=== PATIENT | female | born 1990 | race Hispanic/Latino ===

== ENCOUNTER 2019-01-29 16:10 | Inpatient (IN) | payer MEDICAID ==
[~2019-01-29] VITALS: Ht 160 cm; Wt 86.0 kg
--- NOTE | 2019-01-29 20:06 | PR ---
[facility] [address] [place], [place] [address] Signed Progress Notes IP Datetime Report Generated by CPN: 01/29/2019 20:06 PROGRESS NOTES: [id number] Impression: Normal progression of labor Procedures: Artificial ROM Plan: Continue present management; Anticipate Vaginal Delivery VITAL SIGNS: [id number] Vital Signs: Reviewed; Within Normal Limits VS Notable Details: BP 140's/90's EXAM: [id number] Dilatation: 2.5 Effacement: 50 Station: -2 Uterine Contractions: irregular MEMBRANES: [id number] Membrane Status: Ruptured Amniotic Fluid Color: Clear ROM Note: AROM with small amount clear fluid, head wll-applied to cervix Comments: Discussed AROM, would like Epidural. Anesthesia called. Watch BP closely Fetus A: [id number] FHR Baseline: 120 Variability: Moderate 6-25bpm Accelerations: 15X15 Presentation: Vertex Fetus B: [id number] Signing Physician: Ronda Farr MD Copies: ~ *Electronically Signed* 01/29/192005 RONDA FARR MD PATIENT NAME: YELITZA SALEH I PROGRESS NOTE DATE OF : 89 PHYSICIAN: RONDA FARR MD RPT #: [id number] REPORT IS CONFIDENTIAL AND NOT TO BE RELEASED WITHOUT AUTHORIZATION
[2019-01-29] MEDS ORDERED: PRENATAL VITAM1 EAC6 PO (21:30)
[2019-01-29] MEDS ORDERED: LEVOTHYROXINE50 MCG PO (21:36)
--- NOTE | 2019-01-30 07:12 | PR ---
[facility] [address] [facility] [place], [place] [address] Signed Progress Notes IP Datetime Report Generated by CPN: 01/30/2019 07:11 PROGRESS NOTES: [id number] Impression: Slow Progression of Labor Procedures: Artificial ROM Plan: Continue present management VITAL SIGNS: [id number] Vital Signs: Reviewed; Within Normal Limits VS Notable Details: BP 140's/90's EXAM: [id number] Dilatation: 5.0 Effacement: 90 Station: -2 Uterine Contractions: every 2-4 minutes MEMBRANES: [id number] Membrane Status: Ruptured Amniotic Fluid Color: Clear ROM Note: AROM with small amount clear fluid, head wll-applied to cervix Comments: Getting uncomfortable, Anesthesia called for redose Fetus A: [id number] FHR Baseline: 145 Variability: Moderate 6-25bpm Accelerations: 15X15 Presentation: Vertex Fetus B: [id number] Signing Physician: Ronda Farr MD Copies: ~ *Electronically Signed* 01/30/19 0711 RONDA FARR MD PATIENT NAME: YELITZA SALEH I PROGRESS NOTE DATE OF : 89 PHYSICIAN: RONDA FARR MD RPT #: [id number] REPORT IS CONFIDENTIAL AND NOT TO BE RELEASED WITHOUT AUTHORIZATION
--- NOTE | 2019-01-30 07:53 | PR ---
[facility] [address] [facility] [place], [place] [address] Signed Progress Notes IP Datetime Report Generated by CPN: 01/30/2019 07:52 PROGRESS NOTES: [id number] Impression: Slow Progression of Labor Procedures: Intrauterine Pressure Catheter; Scalp Electrode Plan: Continue present management VITAL SIGNS: [id number] Vital Signs: Reviewed; Within Normal Limits VS Notable Details: BP 140's/90's EXAM: [id number] Dilatation: 5.0 Effacement: 90 Station: -2 Uterine Contractions: every 2-4 minutes MEMBRANES: [id number] Membrane Status: Ruptured Amniotic Fluid Color: Clear ROM Note: AROM with small amount clear fluid, head wll-applied to cervix Comments: Still uncomfortable after redose; will call Anesthesia. Will observe contracitons, may need to start Pitocin augmentation after patietn comfortable Fetus A: [id number] FHR Baseline: 140 Variability: Moderate 6-25bpm Accelerations: 15X15 Presentation: Vertex Fetus B: [id number] Signing Physician: Ronda Farr MD Copies: ~ *Electronically Signed* 01/30/19 0752 RONDA FARR MD PATIENT NAME: YELITZA SALEH I PROGRESS NOTE DATE OF : 89 PHYSICIAN: RONDA FARR MD RPT #: [id number] REPORT IS CONFIDENTIAL AND NOT TO BE RELEASED WITHOUT AUTHORIZATION
--- NOTE | 2019-01-30 13:16 | PR ---
[facility] [address] [facility] [place] [facility] [place], [place] [address] Signed Progress Notes IP Datetime Report Generated by CPN: 01/30/2019 13:16 PROGRESS NOTES: [id number] Impression: Normal progression of labor Procedures: Intrauterine Pressure Catheter; Scalp Electrode Plan: Continue present management; Anticipate Vaginal Delivery VITAL SIGNS: [id number] Vital Signs: Reviewed; Within Normal Limits VS Notable Details: BP 140's/90's EXAM: [id number] Dilatation: 10.0 Effacement: 100 Station: 0 Uterine Contractions: every 2-3 minutes MEMBRANES: [id number] Membrane Status: Ruptured Amniotic Fluid Color: Clear ROM Note: AROM with small amount clear fluid, head wll-applied to cervix Comments: Feeling pressure. Start pushing Fetus A: [id number] FHR Baseline: 150 Variability: Moderate 6-25bpm Accelerations: 15X15 Presentation: Vertex Other Presentation: LELIA Fetus B: [id number] Signing Physician: Kavon Farr MD Copies: ~ *Electronically Signed* 01/30/19 1316 KAVON FARR MD PATIENT NAME: YELITZA SALEH I PROGRESS NOTE DATE OF : 89 PHYSICIAN: KAVON FARR MD RPT #: [id number] REPORT IS CONFIDENTIAL AND NOT TO BE RELEASED WITHOUT AUTHORIZATION
--- NOTE | 2019-01-31 11:36 | PR ---
[facility] [address] [facility] [facility] [place], [place] [address] Signed PP Progress Notes Datetime Report Generated by CPN: 01/31/2019 11:36 SUBJECTIVE: [id number] Pain: Within normal limits Nausea/Vomiting: Denies Vital Signs: [id number] Vital Signs: Reviewed; Within Normal Limits Notable Details: PP Hgb/Hct = 11.4/33.9 EXAM: [id number] Abdomen/Uterus: Normal Lochia: Normal Extremities: Normal IMPRESSION/PLAN/PROCEDURES: [id number] Impression: Normal progression Plan: Continue present management Procedures: None Progress Notes: Doing well, excpet for some dizziness. Increase fluids and activity, watch patient when first getting up[ until feeling better Signing Physician: Ronda Farr MD Copies: ~ *Electronically Signed* 01/31/19 1136 RONDA FARR MD PATIENT NAME: YELITZA SALEH I PROGRESS NOTE DATE OF : 89 PHYSICIAN: RONDA FARR MD RPT #: [id number] REPORT IS CONFIDENTIAL AND NOT TO BE RELEASED WITHOUT AUTHORIZATION
--- NOTE | 2019-02-01 11:15 | PR ---
[facility] [facility] [address] [facility] [place] [address] Signed PP Progress Notes Datetime Report Generated by CPN: 02/01/2019 11:15 SUBJECTIVE: [id number] Pain: Within normal limits Nausea/Vomiting: Denies Vital Signs: [id number] Vital Signs: Reviewed; Within Normal Limits Notable Details: PP Hgb/Hct = 11.4/33.9 EXAM: [id number] Abdomen/Uterus: Normal Lochia: Normal Extremities: Normal IMPRESSION/PLAN/PROCEDURES: [id number] Impression: Normal progression Plan: Discharge Procedures: None Progress Notes: Doing well, ready to go home. Neri's cousin interpreting Signing Physician: Kavon Farr MD Copies: ~ *Electronically Signed* 02/01/19 1115 KAVON FARR MD PATIENT NAME: YELITZA SALEH I PROGRESS NOTE DATE OF : 89 PHYSICIAN: KAVON FARR MD RPT #: [id number] REPORT IS CONFIDENTIAL AND NOT TO BE RELEASED WITHOUT AUTHORIZATION
== END 2019-02-01 14:55 | disposition home or self-care (01) | DRG 807 ==
LOC: FBCO 16:10 → FBC 18:30
PROVIDERS: ADMIT General Practice
PROC: 10907ZC Drainage of Amniotic Fluid, Therapeutic from Products of Conception, Via Natural or Artificial Opening (ICD-10-PCS; 2019-01-29)
PROC: 00HU33Z Insertion of Infusion Device into Spinal Canal, Percutaneous Approach (ICD-10-PCS; 2019-01-29)
PROC: 3E0R3BZ Introduction of Anesthetic Agent into Spinal Canal, Percutaneous Approach (ICD-10-PCS; 2019-01-29)
PROC: 10E0XZZ Delivery of Products of Conception, External Approach (ICD-10-PCS; principal; 2019-01-30)
PROC: 0KQM0ZZ Repair Perineum Muscle, Open Approach (ICD-10-PCS; 2019-01-30)
PROC: 10H07YZ Insertion of Other Device into Products of Conception, Via Natural or Artificial Opening (ICD-10-PCS; 2019-01-30)
DX: O14.04 Mild to moderate pre-eclampsia, complicating childbirth (principal); Z37.0 Single live birth; Z3A.37 37 weeks gestation of pregnancy; O70.1 Second degree perineal laceration during delivery; O28.2 Abnormal cytological finding on antenatal screening of mother; O99.284 Endocrine, nutritional and metabolic diseases complicating childbirth; E03.9 Hypothyroidism, unspecified; Z88.1 Allergy status to other antibiotic agents; Z91.040 Latex allergy status
CPT/HCPCS: 01960; 36415; 59025; 82565; 82570; 84156; 84450; 84520; 84550; 85025; 85027; 86703; 86762; 86780; 86850; 86900; 86901; 87340; 87653; 99213; A9270; J2590; J2795; J3010; J7121